=== PATIENT | male | born 1985 | race Caucasian/White ===

== ENCOUNTER → 2017-08-14 | Outpatient (CLI) | payer BC ==
--- NOTE | 2017-08-15 14:08 | RADIOLOGY REPORT PS360 ---
LUMBAR SPINE 5 VIEWS HISTORY: BESSIE LOW BACK PAIN Acute onset low back pain with pain down right leg Patient Age: 32 years: Male Ordering Physician: Nadja Arita APRN TECHNIQUE: 5 view lumbar spine series COMPARISON : FINDINGS Vertebral bodies are intact. Mild but definite disc space narrowing L5/S1. May reflect reflect early degenerative disc changes here . . pedicles, transverse processes, SI joints unremarkable. Facets intact.. No pars defect. Bones well mineralized. . Normal alignment IMPRESSION: ----- Mild disc space narrowing at L5/S1 otherwise unremarkable lumbar spine series.
== END ==
LOC: RAD 12:02
DX: M54.5 Low back pain (principal)